=== PATIENT | female | born 1960 | race Asian ===

== ENCOUNTER 2018-05-17 09:36 | Emergency (ER) | payer MEDICAID ==
[~2018-05-17] VITALS: Ht 149.9 cm; Wt 61.8 kg
[2018-05-17] MEDS ORDERED: ALBU8HFA (09:39)
[2018-05-17] MEDS ORDERED: LEVO125 PO (09:40)
[2018-05-17] MEDS ORDERED: LORA-192 PO (09:40)
[2018-05-17] MEDS ORDERED: ACETAMINOPHEN 325 MG TABLET PO ONE (10:15)
[2018-05-17] MEDS ORDERED: PERTUSS(ACELL),DIPH,TET VAC/PF 0.5 ML VIAL IM ONE (10:30)
[2018-05-17 11:24] VITALS: BP 131/84
== END 2018-05-17 11:48 | disposition home or self-care (01) ==
LOC: EMS 09:55
DX: S92.354A Nondisplaced fracture of fifth metatarsal bone, right foot, initial encounter for closed fracture (principal); J45.909 Unspecified asthma, uncomplicated; F41.9 Anxiety disorder, unspecified; E03.9 Hypothyroidism, unspecified; Z90.49 Acquired absence of other specified parts of digestive tract; Z91.040 Latex allergy status; W18.30XA Fall on same level, unspecified, initial encounter; Y93.01 Activity, walking, marching and hiking; Y92.89 Other specified places as the place of occurrence of the external cause; Y99.8 Other external cause status
CPT/HCPCS: 29515; 90715; 99284

== ENCOUNTER → 2018-06-18 | Outpatient (CLI) | payer OTHER ==
[~2018-06-18] MED LIST: ALBU8HFA; LEVO125 PO; LORA-192 PO
[2018-06-19 13:17] LABS: RUBEOLA (MEASLES) IGG >300.0 AU/mL (Immune >29.9)
== END | disposition home or self-care (01) ==
LOC: EMPHLTH 12:36
PROVIDERS: ATTEND Internal Medicine
DX: Z02.1 Encounter for pre-employment examination (principal)
CPT/HCPCS: 86706; 86735; 86762; 86765; 86787

== ENCOUNTER → 2019-03-09 | Outpatient (CLI) | payer OTHER ==
[2019-03-09 11:29] LABS: BASOPHILS % (AUTO) 0.9 % (0.0-2.0); EOSINOPHILS % (AUTO) 4.2 % (1.0-6.0); HEMATOCRIT 39.3 % (36-46); LYMPHOCYTES % (AUTO) 35.1 % (22.0-44.0); MEAN CORPUSCULAR HEMOGLOBIN 30.8 pg (26.0-34.0); MEAN CORPUSCULAR HGB CONC 33.2 G/dL (31.0-37.0); MEAN CORPUSCULAR VOLUME 93 fL (80-100); MONOCYTES # (AUTO) 0.3 K/uL (0.1-1.0); MONOCYTES % (AUTO) 6.1 % (2.0-9.0); NEUTROPHILS # (AUTO) 3.1 K/uL (1.8-7.7); NEUTROPHILS % (AUTO) 53.7 % (40.0-70.0); PLATELET COUNT (AUTO) 314 K/uL (150-450); RED BLOOD CELL COUNT(AUTO) 4.24 MIL/uL (4.00-5.20); RED CELL DISTRIBUTION WIDTH 13.2 % (11.5-14.5)
[2019-03-09 11:46] LABS: FOLATE SERUM 12.8 ng/mL (5.4-)
[2019-03-09 12:37] LABS: ALANINE AMINOTRANSFERASE 27 U/L (12-78); ALKALINE PHOSPHATASE 92 U/L (46-116); ANION GAP 13 mmol/L (8-16); ASPARTATE AMINOTRANSFERASE 29 U/L (15-37); BILIRUBIN,TOTAL 0.4 mg/dL (0.1-1.0); C-REACTIVE PROTEIN QUANT 0.22 mg/dL (0.00-0.30); CALCIUM, TOTAL 8.8 mg/dL (8.8-10.5); CARBON DIOXIDE 23 mmol/L (22-29); CHLORIDE 106 mmol/L (98-107); CHOL/HDL RATIO 4.8 (3.9-5.7); CHOLESTEROL 205 mg/dL (131-200); CREATININE 0.73 mg/dL (0.60-1.30); FREE T4 (FREE THYROXINE) 1.41 ng/dL (0.76-1.46); GLOMERULAR FILTR. RATE CALC > 60 mL/min (>60); GLUCOSE,RANDOM 98 mg/dL (70-110); HDL CHOLESTEROL 43 mg/dL (40-60); LDL CHOL (CALC.) 144 mg/dL (0-130); POTASSIUM 4.1 mmol/L (3.5-5.1); SODIUM SERUM 142 mmol/L (136-145); THYROID STIMULATING HORMONE 0.35 uIU/mL (0.36-3.74); TOTAL PROTEIN, SERUM 7.6 g/dL (6.4-8.2); TRIGLYCERIDES 89 mg/dL (15-150); UREA NITROGEN, BLOOD 12 mg/dL (7-18)
[2019-03-09 12:38] LABS: ERYTHROCYTE SEDIMENTATION RATE 11 MM/HR (0-20)
== END | disposition home or self-care (01) ==
LOC: LABPV 07:43
PROVIDERS: ATTEND Family Medicine
DX: Z00.00 Encounter for general adult medical examination without abnormal findings (principal)
CPT/HCPCS: 82306; 82607; 82746; 83036; 84439; 84443; 85651; 86140; 86430

== ENCOUNTER 2019-09-01 07:54 | Emergency (ER) | payer OTHER ==
[~2019-09-01] VITALS: Ht 152.4 cm; Wt 67.1 kg
[2019-09-01] MEDS ORDERED: ALBU8.5H8 IH (08:18)
[2019-09-01] MEDS: AMPICILLIN SODIUM/SULBACTAM NA 3 GM in SODIUM CHLORIDE 0.9% 100 ML IV ONE (10:01)
[2019-09-01] MEDS: KETOROLAC TROMETHAMINE 30 MG/ML VIAL IVP ONE (10:01)
[2019-09-01 10:10] VITALS: BP 155/88
== END 2019-09-01 10:50 | disposition home or self-care (01) ==
LOC: EMS 07:56
DX: K04.7 Periapical abscess without sinus (principal); K08.89 Other specified disorders of teeth and supporting structures; J45.909 Unspecified asthma, uncomplicated; F41.9 Anxiety disorder, unspecified; E03.9 Hypothyroidism, unspecified; Z90.89 Acquired absence of other organs; Z91.040 Latex allergy status
CPT/HCPCS: 96365; 96375; 99283; J0295; J1885; J7050

== ENCOUNTER 2019-11-11 18:49 | Emergency (ER) | payer OTHER ==
[~2019-11-11] VITALS: Ht 149.9 cm; Wt 61.4 kg
[~2019-11-11 18:49] MED LIST changes: +ALBU8.5H8 IH
[2019-11-11 19:06] VITALS: BP 152/91
[2019-11-11] MEDS ORDERED: AMPI500C68 PO (19:17)
== END 2019-11-11 20:46 | disposition home or self-care (01) ==
LOC: EMS 18:51
DX: R13.10 Dysphagia, unspecified (principal); J06.9 Acute upper respiratory infection, unspecified; E03.9 Hypothyroidism, unspecified; F41.9 Anxiety disorder, unspecified; J45.909 Unspecified asthma, uncomplicated; Z91.040 Latex allergy status; Z79.899 Other long term (current) drug therapy

== ENCOUNTER → 2019-11-22 | Outpatient (CLI) | payer OTHER ==
[~2019-11-22] MED LIST changes: +AMPI500C68 PO
[2019-11-22 08:43] LABS: BASOPHILS % (AUTO) 0.5 % (0.0-2.0); EOSINOPHILS % (AUTO) 2.8 % (1.0-6.0); HEMATOCRIT 39.3 % (36-46); LYMPHOCYTES # (AUTO) 2.4 K/uL (1.0-4.8); LYMPHOCYTES % (AUTO) 40.7 % (22.0-44.0); MEAN CORPUSCULAR HEMOGLOBIN 30.8 pg (26.0-34.0); MEAN CORPUSCULAR HGB CONC 33.2 G/dL (31.0-37.0); MEAN CORPUSCULAR VOLUME 93 fL (80-100); MONOCYTES # (AUTO) 0.4 K/uL (0.1-1.0); MONOCYTES % (AUTO) 6.6 % (2.0-9.0); NEUTROPHILS # (AUTO) 2.9 K/uL (1.8-7.7); NEUTROPHILS % (AUTO) 49.4 % (40.0-70.0); PLATELET COUNT (AUTO) 305 K/uL (150-450); RED BLOOD CELL COUNT(AUTO) 4.24 MIL/uL (4.00-5.20); RED CELL DISTRIBUTION WIDTH 12.4 % (11.5-14.5)
[2019-11-22 08:57] LABS: HEMOGLOBIN A1C 5.9 % (3.8-5.6)
[2019-11-22 09:04] LABS: ALANINE AMINOTRANSFERASE 33 U/L (12-78); ALBUMIN 4.1 g/dL (3.4-5.0); ALKALINE PHOSPHATASE 90 U/L (46-116); ANION GAP 13 mmol/L (8-16); ASPARTATE AMINOTRANSFERASE 23 U/L (15-37); BILIRUBIN,TOTAL 0.5 mg/dL (0.1-1.0); CALCIUM, TOTAL 9.5 mg/dL (8.8-10.5); CARBON DIOXIDE 24 mmol/L (22-29); CHLORIDE 105 mmol/L (98-107); CHOL/HDL RATIO 4.7 (3.9-5.7); CHOLESTEROL 200 mg/dL (131-200); CREATININE 0.77 mg/dL (0.60-1.30); FREE T4 (FREE THYROXINE) 1.33 ng/dL (0.76-1.46); GLOMERULAR FILTR. RATE CALC > 60 mL/min (>60); GLUCOSE,RANDOM 101 mg/dL (70-110); HDL CHOLESTEROL 43 mg/dL (40-60); LDL CHOL (CALC.) 139 mg/dL (0-130); POTASSIUM 3.9 mmol/L (3.5-5.1); SODIUM SERUM 142 mmol/L (136-145); THYROID STIMULATING HORMONE 0.19 uIU/mL (0.36-3.74); TOTAL PROTEIN, SERUM 7.7 g/dL (6.4-8.2); TRIGLYCERIDES 91 mg/dL (15-150); UREA NITROGEN, BLOOD 9 mg/dL (7-18); VITAMIN B12 LEVEL 705 pg/mL (211-911); VITAMIN D,TOTAL (25-0H) 20 ng/mL (30-100)
[2019-11-22 09:44] LABS: ERYTHROCYTE SEDIMENTATION RATE 19 MM/HR (0-20)
[2019-11-23 06:16] LABS: H. PYLORI ANTIBODY IGG 4.79 (0.00-0.79)
[2019-11-24 13:06] LABS: H. PYLORI ANTIBODY IGM <9.0 units (0.0-8.9)
[2019-11-24 14:06] LABS: H. PYLORI ANTIBODY IGA 13.9 units (0.0-8.9)
== END | disposition home or self-care (01) ==
LOC: LABPV 07:21
PROVIDERS: ATTEND Family Medicine
DX: Z00.00 Encounter for general adult medical examination without abnormal findings (principal)
CPT/HCPCS: 82306; 82607; 83036; 83970; 84439; 84443; 85651; 86430; 86677

== ENCOUNTER 2019-11-29 11:55 | Emergency (ER) | payer OTHER ==
[~2019-11-29] VITALS: Ht 149.9 cm; Wt 60.5 kg
[2019-11-29 13:48] LABS: BASOPHILS % (AUTO) 0.7 % (0.0-2.0); EOSINOPHILS % (AUTO) 3.5 % (1.0-6.0); HEMATOCRIT 38.7 % (36-46); LYMPHOCYTES # (AUTO) 2.4 K/uL (1.0-4.8); LYMPHOCYTES % (AUTO) 35.5 % (22.0-44.0); MEAN CORPUSCULAR HGB CONC 33.6 G/dL (31.0-37.0); MEAN CORPUSCULAR VOLUME 92 fL (80-100); MONOCYTES # (AUTO) 0.4 K/uL (0.1-1.0); MONOCYTES % (AUTO) 5.2 % (2.0-9.0); NEUTROPHILS # (AUTO) 3.8 K/uL (1.8-7.7); NEUTROPHILS % (AUTO) 55.1 % (40.0-70.0); PLATELET COUNT (AUTO) 274 K/uL (150-450); RED CELL DISTRIBUTION WIDTH 12.6 % (11.5-14.5)
[2019-11-29 14:02] LABS: ANION GAP 10 mmol/L (8-16); CALCIUM, TOTAL 9.4 mg/dL (8.8-10.5); CARBON DIOXIDE 25 mmol/L (22-29); CHLORIDE 104 mmol/L (98-107); CREATININE 0.63 mg/dL (0.60-1.30); GLOMERULAR FILTR. RATE CALC > 60 mL/min (>60); GLUCOSE,RANDOM 80 mg/dL (70-110); POTASSIUM 3.6 mmol/L (3.5-5.1); SODIUM SERUM 139 mmol/L (136-145); UREA NITROGEN, BLOOD 9 mg/dL (7-18)
[2019-11-29 14:08] LABS: ALANINE AMINOTRANSFERASE 31 U/L (12-78); ALBUMIN 4.1 g/dL (3.4-5.0); ALKALINE PHOSPHATASE 92 U/L (46-116); ASPARTATE AMINOTRANSFERASE 21 U/L (15-37); BILIRUBIN,TOTAL 0.4 mg/dL (0.1-1.0); INR 1.1 (0.9-1.1); PROTHROMBIN TIME 10.8 SEC (9.4-11.6); TOTAL PROTEIN, SERUM 7.5 g/dL (6.4-8.2)
[2019-11-29 15:52] VITALS: BP 136/81
== END 2019-11-29 16:16 | disposition home or self-care (01) ==
LOC: EMS 11:57
DX: K22.5 Diverticulum of esophagus, acquired (principal); F41.9 Anxiety disorder, unspecified; J45.909 Unspecified asthma, uncomplicated; E03.9 Hypothyroidism, unspecified; Z90.89 Acquired absence of other organs; Z90.710 Acquired absence of both cervix and uterus; Z91.040 Latex allergy status; Z91.018 Allergy to other foods
CPT/HCPCS: 74220

== ENCOUNTER → 2020-03-02 | Outpatient (CLI) | payer OTHER ==
[~2020-03-02] MED LIST changes: -ALBU8HFA; -AMPI500C68 PO
[2020-03-02 09:15] LABS: EOSINOPHILS % (AUTO) 3.8 % (1.0-6.0); HEMOGLOBIN 13.4 g/dL (12.0-16.0); LYMPHOCYTES % (AUTO) 36.4 % (22.0-44.0); MEAN CORPUSCULAR HEMOGLOBIN 31.4 pg (26.0-34.0); MEAN CORPUSCULAR HGB CONC 33.5 G/dL (31.0-37.0); MEAN CORPUSCULAR VOLUME 94 fL (80-100); MONOCYTES # (AUTO) 0.3 K/uL (0.1-1.0); MONOCYTES % (AUTO) 6.2 % (2.0-9.0); NEUTROPHILS # (AUTO) 2.9 K/uL (1.8-7.7); NEUTROPHILS % (AUTO) 52.6 % (40.0-70.0); PLATELET COUNT (AUTO) 293 K/uL (150-450); RED BLOOD CELL COUNT(AUTO) 4.27 MIL/uL (4.00-5.20); RED CELL DISTRIBUTION WIDTH 13.7 % (11.5-14.5)
[2020-03-02 09:29] LABS: HEMOGLOBIN A1C 5.7 % (3.8-5.6)
[2020-03-02 09:30] LABS: % IRON SATURATION 26.1 % (22-44); IRON, SERUM 100 mcg/dL (50-175); TOTAL IRON BINDING CAPACITY 383 mcg/dL (250-450)
[2020-03-02 09:45] LABS: ALANINE AMINOTRANSFERASE 24 U/L (12-78); ALBUMIN 4.4 g/dL (3.4-5.0); ALKALINE PHOSPHATASE 95 U/L (46-116); ANION GAP 12 mmol/L (8-16); ASPARTATE AMINOTRANSFERASE 16 U/L (15-37); BILIRUBIN,TOTAL 0.4 mg/dL (0.1-1.0); CALCIUM, TOTAL 9.3 mg/dL (8.8-10.5); CARBON DIOXIDE 26 mmol/L (22-29); CHLORIDE 106 mmol/L (98-107); CHOL/HDL RATIO 2.9 (3.9-5.7); CHOLESTEROL 245 mg/dL (131-200); CREATINE KINASE, TOTAL ONLY 49 U/L (26-192); CREATININE 0.85 mg/dL (0.60-1.30); FREE T4 (FREE THYROXINE) 0.99 ng/dL (0.76-1.46); GLOMERULAR FILTR. RATE CALC > 60 mL/min (>60); GLUCOSE,RANDOM 93 mg/dL (70-110); HDL CHOLESTEROL 85 mg/dL (40-60); LDL CHOL (CALC.) 146 mg/dL (0-130); POTASSIUM 4.4 mmol/L (3.5-5.1); SODIUM SERUM 144 mmol/L (136-145); TOTAL PROTEIN, SERUM 8.1 g/dL (6.4-8.2); TRIGLYCERIDES 70 mg/dL (15-150); UREA NITROGEN, BLOOD 18 mg/dL (7-18)
[2020-03-02 10:35] LABS: ERYTHROCYTE SEDIMENTATION RATE 20 MM/HR (0-20)
[2020-03-02 10:48] LABS: APPEARANCE,URINE CLOUDY (CLEAR); BILIRUBIN,URINE NEGATIVE (NEGATIVE); GLUCOSE, URINE (UA) NEGATIVE (NEGATIVE); KETONES,URINE NEGATIVE (NEGATIVE); LEUKOCYTE ESTERASE ,URINE MODERATE (NEGATIVE); NITRATE,URINE NEGATIVE (NEGATIVE); OCCULT BLOOD,URINE NEGATIVE (NEGATIVE); PH,URINE 5.5 (5.0-8.0); PROTEIN,URINE NEGATIVE (NEGATIVE); UROBILINOGEN,URINE 0.2 mg/dL (<=1.0)
[2020-03-02 11:22] LABS: FOLATE SERUM 9.2 ng/mL (5.4-)
[2020-03-02 11:28] LABS: BACTERIA,URINE None Seen /HPF (None Seen); RBC,URINE None Seen /HPF (0-2); SQUAMOUS EPITHELIAL CELL,UR Moderate /LPF (None Seen)
== END | disposition home or self-care (01) ==
LOC: LABMN 08:38
PROVIDERS: ATTEND Family Medicine
DX: Z00.01 Encounter for general adult medical examination with abnormal findings (principal); E03.9 Hypothyroidism, unspecified
CPT/HCPCS: 82306; 82607; 82746; 83036; 83540; 83550; 84439; 84443; 85651; 86430

== ENCOUNTER 2020-06-18 13:39 | Emergency (ER) | payer OTHER ==
[~2020-06-18] VITALS: Ht 160 cm; Wt 59.0 kg
[2020-06-18] MEDS ORDERED: ALBUTEROL SULFATE 2.5 MG/0.5 ML NEB SOLUTION NEB ONE (13:45)
[2020-06-18] MEDS ORDERED: IPRATROPIUM BROMIDE 0.5 MG/2.5 ML NEB SOLUTION NEB ONE (13:45)
[2020-06-18 14:09] VITALS: BP 137/82
[2020-06-18] MEDS ORDERED: PredniSONE 20 MG TABLET PO ONE (14:15)
[2020-06-18 15:01] LABS: COVID AG,FIA SOURCE NASOPHARYNGEAL
[2020-06-18] MEDS ORDERED: ALBUTEROL SULFATE HFA 90 MCG/PUFF 8 GM INHALER IH ONE (16:15)
== END 2020-06-18 16:34 | disposition home or self-care (01) ==
LOC: EMS 13:42
DX: J45.909 Unspecified asthma, uncomplicated (principal); F41.9 Anxiety disorder, unspecified; Z90.89 Acquired absence of other organs; Z90.710 Acquired absence of both cervix and uterus; Z91.040 Latex allergy status; Z91.018 Allergy to other foods
CPT/HCPCS: 71045; 87426; 94640; 99284; J7512; 94060; J3535; J7613

== ENCOUNTER 2020-07-19 09:22 | Emergency (ER) | payer OTHER ==
[~2020-07-19] VITALS: Ht 149.9 cm; Wt 61.4 kg
[2020-07-19 10:06] LABS: BASOPHILS % (AUTO) 0.9 % (0.0-2.0); HEMATOCRIT 38.4 % (36-46); LYMPHOCYTES # (AUTO) 2.4 K/uL (1.0-4.8); LYMPHOCYTES % (AUTO) 38.8 % (22.0-44.0); MEAN CORPUSCULAR HEMOGLOBIN 32.3 pg (26.0-34.0); MEAN CORPUSCULAR HGB CONC 33.8 G/dL (31.0-37.0); MEAN CORPUSCULAR VOLUME 95 fL (80-100); MONOCYTES # (AUTO) 0.3 K/uL (0.1-1.0); MONOCYTES % (AUTO) 5.5 % (2.0-9.0); NEUTROPHILS # (AUTO) 3.2 K/uL (1.8-7.7); NEUTROPHILS % (AUTO) 50.8 % (40.0-70.0); PLATELET COUNT (AUTO) 316 K/uL (150-450); RED BLOOD CELL COUNT(AUTO) 4.03 MIL/uL (4.00-5.20); RED CELL DISTRIBUTION WIDTH 12.8 % (11.5-14.5)
[2020-07-19 10:14] LABS: COVID AG,FIA SOURCE NASOPHARYNGEAL
[2020-07-19 10:16] LABS: ANION GAP 14 mmol/L (8-16); CALCIUM, TOTAL 9.4 mg/dL (8.8-10.5); CARBON DIOXIDE 23 mmol/L (22-29); CHLORIDE 103 mmol/L (98-107); CREATININE 0.82 mg/dL (0.60-1.30); GLOMERULAR FILTR. RATE CALC > 60 mL/min (>60); GLUCOSE,RANDOM 107 mg/dL (70-110); POTASSIUM 4.1 mmol/L (3.5-5.1); SODIUM SERUM 140 mmol/L (136-145); UREA NITROGEN, BLOOD 13 mg/dL (7-18)
[2020-07-19 10:21] LABS: ALANINE AMINOTRANSFERASE 20 U/L (12-78); ALBUMIN 4.1 g/dL (3.4-5.0); ALKALINE PHOSPHATASE 79 U/L (46-116); ASPARTATE AMINOTRANSFERASE 15 U/L (15-37); BILIRUBIN,TOTAL 0.3 mg/dL (0.1-1.0); TOTAL PROTEIN, SERUM 7.1 g/dL (6.4-8.2)
[2020-07-19] MEDS ORDERED: MECLIZINE HCL 25 MG TABLET PO ONE (10:45)
[2020-07-19] MEDS ORDERED: ONDANSETRON HCL 4 MG TABLET PO ONE (10:45)
[2020-07-19 12:19] LABS: APPEARANCE,URINE CLEAR (CLEAR); BILIRUBIN,URINE NEGATIVE (NEGATIVE); GLUCOSE, URINE (UA) NEGATIVE (NEGATIVE); KETONES,URINE NEGATIVE (NEGATIVE); LEUKOCYTE ESTERASE ,URINE NEGATIVE (NEGATIVE); NITRATE,URINE NEGATIVE (NEGATIVE); OCCULT BLOOD,URINE TRACE (NEGATIVE); PH,URINE 6.5 (5.0-8.0); PROTEIN,URINE NEGATIVE (NEGATIVE); UROBILINOGEN,URINE 0.2 mg/dL (<=1.0)
[2020-07-19 12:24] LABS: BACTERIA,URINE None Seen /HPF (None Seen); RBC,URINE 0-2 /HPF (0-2); SQUAMOUS EPITHELIAL CELL,UR Moderate /LPF (None Seen); WBC,URINE None Seen /HPF (0-5)
[2020-07-19] MEDS ORDERED: ALBUTEROL SULFATE HFA 90 MCG/PUFF 8 GM INHALER IH ONE (12:45)
[2020-07-19 13:40] VITALS: BP 142/98
[2020-07-19] MEDS ORDERED: FLUTICASONE/SALMETEROL 250-50 MCG/INH INHALER [60] IH ONE (14:30)
== END 2020-07-19 13:55 | disposition home or self-care (01) ==
LOC: EMS 09:23
DX: R42 Dizziness and giddiness (principal); F41.9 Anxiety disorder, unspecified; J45.909 Unspecified asthma, uncomplicated; E03.9 Hypothyroidism, unspecified; Z90.49 Acquired absence of other specified parts of digestive tract; Z90.710 Acquired absence of both cervix and uterus; Z91.018 Allergy to other foods; Z91.040 Latex allergy status; Z88.5 Allergy status to narcotic agent; Z79.899 Other long term (current) drug therapy; Z20.828 Contact with and (suspected) exposure to other viral communicable diseases
CPT/HCPCS: 87426; 93005; 94640; J3535; Q0162; 36415-L1; 36415-TC; 71045-TC; U0003-CS

== ENCOUNTER 2020-09-19 17:25 | Emergency (ER) | payer OTHER ==
[~2020-09-19] VITALS: Ht 160 cm; Wt 65.9 kg
[2020-09-19] MEDS ORDERED: DiphenhydrAMINE HCL 50 MG/ML VIAL IM ONE (17:45)
[2020-09-19] MEDS ORDERED: FAMOTIDINE 20 MG TABLET PO ONE (17:45)
[2020-09-19 18:51] VITALS: BP 148/90
== END 2020-09-19 18:54 | disposition home or self-care (01) ==
LOC: EMS 17:25
DX: T88.1XXA Other complications following immunization, not elsewhere classified, initial encounter (principal); F41.9 Anxiety disorder, unspecified; J45.909 Unspecified asthma, uncomplicated; Z90.89 Acquired absence of other organs; Z90.710 Acquired absence of both cervix and uterus; Z91.040 Latex allergy status; Z88.5 Allergy status to narcotic agent; Z91.018 Allergy to other foods
CPT/HCPCS: 96372; 99283; J1200

== ENCOUNTER 2021-09-10 13:33 | Emergency (ER) | payer OTHER ==
[~2021-09-10] VITALS: Ht 149.9 cm; Wt 62.3 kg
[2021-09-10] MEDS ORDERED: FAMOTIDINE 20 MG TABLET PO STA (13:54)
[2021-09-10] MEDS ORDERED: IPRATROPIUM BROMIDE 0.5 MG/2.5 ML NEB SOLUTION NEB ONE (14:00)
[2021-09-10] MEDS ORDERED: MethylPREDNISolone SOD SUCC 125 MG/2 ML VIAL IVP ONE (14:00)
[2021-09-10] MEDS ORDERED: DiphenhydrAMINE HCL 25 MG CAPSULE PO ONE (14:00)
[2021-09-10] MEDS ORDERED: ALBUTEROL SULFATE 5 MG/ML 20 ML NEB SOLN [BULK] NEB ONE (14:00)
[2021-09-10] MEDS ORDERED: FAMOTIDINE 10 MG/ML 2 ML VIAL IVP ONE (14:15)
[2021-09-10] MEDS ORDERED: DiphenhydrAMINE HCL 50 MG/ML VIAL IVP ONE (14:15)
[2021-09-10 14:51] VITALS: BP 145/93
== END 2021-09-10 16:06 | disposition home or self-care (01) ==
LOC: EMS 13:37
DX: T88.1XXA Other complications following immunization, not elsewhere classified, initial encounter (principal); J45.909 Unspecified asthma, uncomplicated; F41.9 Anxiety disorder, unspecified; Z90.710 Acquired absence of both cervix and uterus; Z91.040 Latex allergy status; Z88.5 Allergy status to narcotic agent; Z91.018 Allergy to other foods; Y92.89 Other specified places as the place of occurrence of the external cause
CPT/HCPCS: 94640; 96374; 96375; 99284; J1200; J2930; J3490

== ENCOUNTER 2021-12-27 10:26 | Emergency (ER) | payer OTHER ==
[~2021-12-27] VITALS: Ht 149.9 cm; Wt 62.3 kg
[2021-12-27] MEDS ORDERED: FLUT1BLS8 IH (10:39)
[2021-12-27 11:01] VITALS: BP 154/93
[2021-12-27] MEDS ORDERED: ALBUTEROL SULFATE 2.5 MG/0.5 ML NEB SOLUTION NEB ONE (11:30)
[2021-12-27] MEDS ORDERED: IPRATROPIUM BROMIDE 0.5 MG/2.5 ML NEB SOLUTION NEB ONE (11:30)
[2021-12-27] MEDS ORDERED: MethylPREDNISolone SOD SUCC 125 MG/2 ML VIAL IM ONE (11:30)
[2021-12-27] MEDS ORDERED: PRED-554 PO (13:05)
[2021-12-27] MEDS ORDERED: FLUT1BLS9 IH (13:05)
== END 2021-12-27 13:19 | disposition home or self-care (01) ==
LOC: EMS 10:29
DX: J45.901 Unspecified asthma with (acute) exacerbation (principal); F41.9 Anxiety disorder, unspecified; E03.9 Hypothyroidism, unspecified; Z88.5 Allergy status to narcotic agent; Z91.040 Latex allergy status; Z91.018 Allergy to other foods; Z79.899 Other long term (current) drug therapy
CPT/HCPCS: 71045; 94640; 96372; 99283; J2930; J7613

== ENCOUNTER 2023-01-19 10:49 | Emergency (ER) | payer OTHER ==
[~2023-01-19] VITALS: Ht 149.9 cm; Wt 63.6 kg
[~2023-01-19 10:49] MED LIST changes: +FLUT1BLS8 IH; +FLUT1BLS9 IH; +PRED-554 PO
[2023-01-19] MEDS ORDERED: FLUT1BLS8 IH (10:51)
[2023-01-19] MEDS ORDERED: IBUP-1492 PO (12:40)
[2023-01-19] MEDS ORDERED: PERCT PO (12:40)
[2023-01-19] MEDS ORDERED: KETOROLAC TROMETHAMINE 60 MG/2 ML VIAL IM ONE (12:45)
[2023-01-19] MEDS ORDERED: ALBU18HF12 IH (12:48)
[2023-01-19 13:17] VITALS: BP 121/72
[2023-01-19] MEDS ORDERED: TRAM-559 PO (13:19)
== END 2023-01-19 13:20 | disposition home or self-care (01) ==
LOC: EMS 10:56
DX: S20.229A Contusion of unspecified back wall of thorax, initial encounter (principal); F41.9 Anxiety disorder, unspecified; J45.909 Unspecified asthma, uncomplicated; E03.9 Hypothyroidism, unspecified; Z90.49 Acquired absence of other specified parts of digestive tract; Z90.710 Acquired absence of both cervix and uterus; Z91.040 Latex allergy status; Z91.013 Allergy to seafood; Z88.5 Allergy status to narcotic agent; Z91.018 Allergy to other foods; W17.89XA Other fall from one level to another, initial encounter; Y93.89 Activity, other specified; Y92.89 Other specified places as the place of occurrence of the external cause; Y99.8 Other external cause status
CPT/HCPCS: 99283; 96372; J1885

== ENCOUNTER 2023-03-16 12:05 | Emergency (ER) | payer OTHER ==
[~2023-03-16] VITALS: Ht 149.9 cm; Wt 63.6 kg
[~2023-03-16 12:05] MED LIST changes: +ALBU18HF12 IH; -ALBU8.5H8 IH; -FLUT1BLS9 IH; +IBUP-1492 PO; +PERCT PO; -PRED-554 PO; +TRAM-559 PO
[2023-03-16 12:10] VITALS: TEMP 98.4
[2023-03-16] MEDS ORDERED: IBUPROFEN 600 MG TABLET PO ONE (12:45)
[2023-03-16] MEDS ORDERED: CYCLOBENZAPRINE HCL 10 MG TABLET PO ONE (12:45)
[2023-03-16] MEDS ORDERED: CYCL-448 PO (13:34)
[2023-03-16 13:39] VITALS: BP 120/89; PULSE 97; RESP 16
== END 2023-03-16 13:41 | disposition home or self-care (01) ==
LOC: EMS 12:14
DX: S86.912A Strain of unspecified muscle(s) and tendon(s) at lower leg level, left leg, initial encounter (principal); J45.909 Unspecified asthma, uncomplicated; F41.9 Anxiety disorder, unspecified; E03.9 Hypothyroidism, unspecified; Z90.49 Acquired absence of other specified parts of digestive tract; Z90.710 Acquired absence of both cervix and uterus; Z88.5 Allergy status to narcotic agent; Z88.8 Allergy status to other drugs, medicaments and biological substances; Z91.013 Allergy to seafood; Z91.040 Latex allergy status; Z03.89 Encounter for observation for other suspected diseases and conditions ruled out; X58.XXXA Exposure to other specified factors, initial encounter; Y93.89 Activity, other specified; Y92.89 Other specified places as the place of occurrence of the external cause; Y99.8 Other external cause status
CPT/HCPCS: 93971; 99284; Z7502; Z7610

== ENCOUNTER 2023-11-10 12:27 | Emergency (ER) | payer OTHER ==
[~2023-11-10] VITALS: Ht 149.9 cm; Wt 63.6 kg
[~2023-11-10 12:27] MED LIST changes: +CYCL-448 PO; +FLUT1BLS18 IH; -FLUT1BLS8 IH; -IBUP-1492 PO; -PERCT PO; -TRAM-559 PO
[2023-11-10 12:33] VITALS: TEMP 98.4
[2023-11-10 12:53] VITALS: PULSE 82; RESP 20; O2SAT 96
[2023-11-10 12:54] VITALS: PULSE 82; RESP 20; O2SAT 96
[2023-11-10] MEDS: IPRATROPIUM BROMIDE 0.5 MG/2.5 ML NEB SOLUTION NEB ONE (12:55)
[2023-11-10] MEDS: ALBUTEROL SULFATE 2.5 MG/0.5 ML NEB SOLUTION NEB ONE (12:55)
[2023-11-10] MEDS: ALBUTEROL SULFATE HFA 90 MCG/PUFF 8 GM INHALER IH ONE (12:55)
[2023-11-10 13:00] VITALS: PULSE 82; RESP 20; O2SAT 100
[2023-11-10] MEDS: PredniSONE 20 MG TABLET PO ONE (13:01)
[2023-11-10 13:02] LABS: COVID AG,FIA SOURCE NASAL SWAB
[2023-11-10 13:36] LABS: SARS-COV2 (COVID) ANTIGEN,FIA Negative (Negative)
[2023-11-10 13:38] LABS: INFLUENZA TYPE A NEGATIVE FOR TYPE A (NEGATIVE); INFLUENZA TYPE B NEGATIVE FOR TYPE B (NEGATIVE)
[2023-11-10 13:45] VITALS: BP 145/93; PULSE 80; RESP 18
[2023-11-10] MEDS: ACETAMINOPHEN 160 MG/5 ML SUSPENSION UDCUP PO ONE (13:47)
== END 2023-11-10 13:54 | disposition home or self-care (01) ==
LOC: EMS 12:46
DX: J45.901 Unspecified asthma with (acute) exacerbation (principal); F41.9 Anxiety disorder, unspecified; Z90.49 Acquired absence of other specified parts of digestive tract; Z90.710 Acquired absence of both cervix and uterus; Z88.5 Allergy status to narcotic agent; Z91.040 Latex allergy status; Z91.013 Allergy to seafood; Z20.822 Contact with and (suspected) exposure to COVID-19
CPT/HCPCS: 99283; 87426; 87804; 94640; J7512; J3535

== ENCOUNTER 2023-11-20 11:21 | Emergency (ER) | payer OTHER ==
[~2023-11-20] VITALS: Ht 149.9 cm; Wt 63.6 kg
[2023-11-20 11:32] VITALS: BP 119/79; TEMP 97.9
[2023-11-20] MEDS: PredniSONE 20 MG TABLET PO ONE (11:45)
[2023-11-20] MEDS: ALBUTEROL SULFATE 2.5 MG/0.5 ML NEB SOLUTION NEB ONE (11:50)
[2023-11-20] MEDS: IPRATROPIUM BROMIDE 0.5 MG/2.5 ML NEB SOLUTION NEB ONE (11:50)
[2023-11-20 11:51] VITALS: PULSE 89; RESP 16; O2SAT 98
[2023-11-20 12:06] VITALS: PULSE 87; RESP 16; O2SAT 98
[2023-11-20] MEDS ORDERED: PRED-554 PO (13:40)
== END 2023-11-20 13:48 | disposition home or self-care (01) ==
LOC: EMS 11:21
DX: J45.901 Unspecified asthma with (acute) exacerbation (principal); F41.9 Anxiety disorder, unspecified; E03.9 Hypothyroidism, unspecified; Z90.49 Acquired absence of other specified parts of digestive tract; Z90.710 Acquired absence of both cervix and uterus; Z88.5 Allergy status to narcotic agent; Z88.8 Allergy status to other drugs, medicaments and biological substances; Z91.040 Latex allergy status; Z91.013 Allergy to seafood
CPT/HCPCS: 99283; 71045; 94640; J7512; J7613

== ENCOUNTER → 2024-01-18 | Outpatient (CLI) | payer OTHER ==
[~2024-01-18] MED LIST changes: +PRED-554 PO
[2024-01-18 10:44] LABS: BASOPHILS % (AUTO) 0.9 % (0.0-2.0); EOSINOPHILS % (AUTO) 1.1 % (1.0-6.0); HEMATOCRIT 42.1 % (36-46); HEMOGLOBIN 13.9 g/dL (12.0-16.0); LYMPHOCYTES # (AUTO) 4.6 K/uL (1.0-4.8); LYMPHOCYTES % (AUTO) 37.4 % (22.0-44.0); MEAN CORPUSCULAR HGB CONC 33.1 G/dL (31.0-37.0); MEAN CORPUSCULAR VOLUME 93 fL (80-100); MONOCYTES # (AUTO) 0.8 K/uL (0.1-1.0); MONOCYTES % (AUTO) 6.3 % (2.0-9.0); NEUTROPHILS # (AUTO) 6.6 K/uL (1.8-7.7); NEUTROPHILS % (AUTO) 54.3 % (40.0-70.0); PLATELET COUNT (AUTO) 310 K/uL (150-450); RED BLOOD CELL COUNT(AUTO) 4.51 MIL/uL (4.00-5.20); RED CELL DISTRIBUTION WIDTH 12.9 % (11.5-14.5); WHITE BLOOD COUNT (AUTO) 12.2 K/uL (4.5-11.0)
[2024-01-18 10:51] LABS: HEMOGLOBIN A1C 5.8 % (3.8-5.6)
[2024-01-18 11:01] LABS: % IRON SATURATION 28.6 % (22-44); IRON, SERUM 109 mcg/dL (50-175); TOTAL IRON BINDING CAPACITY 380 mcg/dL (250-450)
[2024-01-18 11:09] LABS: ALANINE AMINOTRANSFERASE 23 U/L (12-78); ALBUMIN 4.1 g/dL (3.4-5.0); ALKALINE PHOSPHATASE 104 U/L (46-116); ANION GAP 11 mmol/L (8-16); ASPARTATE AMINOTRANSFERASE 14 U/L (15-37); BILIRUBIN,TOTAL 0.3 mg/dL (0.1-1.0); CALCIUM, TOTAL 8.8 mg/dL (8.8-10.5); CARBON DIOXIDE 25 mmol/L (22-29); CHLORIDE 105 mmol/L (98-107); CREATININE 0.79 mg/dL (0.60-1.30); FREE T4 (FREE THYROXINE) 0.97 ng/dL (0.76-1.46); GLOMERULAR FILTR. RATE CALC > 60 mL/min (>60); GLUCOSE,RANDOM 84 mg/dL (70-110); POTASSIUM 3.7 mmol/L (3.5-5.1); SODIUM SERUM 141 mmol/L (136-145); THYROID STIMULATING HORMONE 0.57 uIU/mL (0.36-3.74); TOTAL PROTEIN, SERUM 7.5 g/dL (6.4-8.2); UREA NITROGEN, BLOOD 20 mg/dL (7-18)
[2024-01-18 11:19] LABS: FOLATE SERUM 13.1 ng/mL (5.4-)
[2024-01-18 12:46] LABS: URIC ACID 3.9 mg/dL (2.6-7.2)
[2024-01-19 10:47] LABS: APPEARANCE,URINE CLEAR (CLEAR); BILIRUBIN,URINE NEGATIVE (NEGATIVE); COLOR,URINE LIGHT YELLOW (YELLOW); GLUCOSE, URINE (UA) NEGATIVE (NEGATIVE); KETONES,URINE NEGATIVE (NEGATIVE); LEUKOCYTE ESTERASE ,URINE NEGATIVE (NEGATIVE); NITRATE,URINE NEGATIVE (NEGATIVE); OCCULT BLOOD,URINE TRACE (NEGATIVE); PROTEIN,URINE NEGATIVE (NEGATIVE); UROBILINOGEN,URINE <=1.0 mg/dL (<=1.0)
[2024-01-19 10:55] LABS: BACTERIA,URINE None Seen /HPF (None Seen); RBC,URINE 0-2 /HPF (0-2); WBC,URINE None Seen /HPF (0-5)
== END | disposition home or self-care (01) ==
LOC: LABMN 10:11
PROVIDERS: ATTEND Family Medicine
DX: Z00.01 Encounter for general adult medical examination with abnormal findings (principal)
CPT/HCPCS: 80053; 81001; 82271; 82306; 82607; 82746; 83036; 83540; 83550; 84439; 84443; 84550; 85025; 87086; 87186

== ENCOUNTER 2024-03-02 06:23 | Inpatient (IN) | payer OTHER, MEDICARE ==
[~2024-03-02] VITALS: Ht 149.9 cm; Wt 69.0 kg
[2024-03-02] MEDS: ALBUTEROL SULFATE 2.5 MG/0.5 ML 5 ML NEB SOLUTION NEB ONE ×2 (07:01→08:41)
[2024-03-02] MEDS: IPRATROPIUM BROMIDE 0.5 MG/2.5 ML NEB SOLUTION NEB ONE ×2 (07:01→08:41)
[2024-03-02 07:03] VITALS: PULSE 120; RESP 22; O2SAT 93
[2024-03-02] MEDS: MethylPREDNISolone SOD SUCC 125 MG/2 ML VIAL IVP ONE (07:13)
[2024-03-02 07:14] LABS: COVID AG,FIA SOURCE NASAL SWAB
[2024-03-02 07:22] LABS: ANION GAP 12 mmol/L (8-16); CALCIUM, TOTAL 9.6 mg/dL (8.8-10.5); CARBON DIOXIDE 23 mmol/L (22-29); CHLORIDE 105 mmol/L (98-107); CREATININE 0.79 mg/dL (0.60-1.30); GLOMERULAR FILTR. RATE CALC > 60 mL/min (>60); GLUCOSE,RANDOM 131 mg/dL (70-110); POTASSIUM 3.8 mmol/L (3.5-5.1); SODIUM SERUM 140 mmol/L (136-145); UREA NITROGEN, BLOOD 19 mg/dL (7-18)
[2024-03-02 07:24] LABS: EOSINOPHILS % (AUTO) 6.4 % (1.0-6.0); HEMATOCRIT 41.8 % (36-46); HEMOGLOBIN 13.7 g/dL (12.0-16.0); LYMPHOCYTES # (AUTO) 2.8 K/uL (1.0-4.8); LYMPHOCYTES % (AUTO) 41.4 % (22.0-44.0); MEAN CORPUSCULAR HEMOGLOBIN 31.1 pg (26.0-34.0); MEAN CORPUSCULAR HGB CONC 32.8 G/dL (31.0-37.0); MEAN CORPUSCULAR VOLUME 95 fL (80-100); MONOCYTES # (AUTO) 0.4 K/uL (0.1-1.0); MONOCYTES % (AUTO) 6.2 % (2.0-9.0); PLATELET COUNT (AUTO) 274 K/uL (150-450); RED BLOOD CELL COUNT(AUTO) 4.42 MIL/uL (4.00-5.20); RED CELL DISTRIBUTION WIDTH 13.2 % (11.5-14.5); WHITE BLOOD COUNT (AUTO) 6.7 K/uL (4.5-11.0)
[2024-03-02 07:27] LABS: ALANINE AMINOTRANSFERASE 25 U/L (12-78); ALBUMIN 3.9 g/dL (3.4-5.0); ALKALINE PHOSPHATASE 103 U/L (46-116); ASPARTATE AMINOTRANSFERASE 17 U/L (15-37); BILIRUBIN,TOTAL 0.4 mg/dL (0.1-1.0); TOTAL PROTEIN, SERUM 7.3 g/dL (6.4-8.2)
[2024-03-02 07:28] LABS: SARS-COV2 (COVID) ANTIGEN,FIA Negative (Negative)
[2024-03-02 07:29] LABS: TROPONIN I-HIGH SENSITIVITY 6 ng/L (<51)
[2024-03-02 07:34] LABS: B-TYPE NATRIURETIC PEPTIDE 8 pg/mL (0-100)
[2024-03-02 07:48] LABS: INFLUENZA TYPE A NEGATIVE FOR TYPE A (NEGATIVE); INFLUENZA TYPE B NEGATIVE FOR TYPE B (NEGATIVE)
[2024-03-02 08:01] VITALS: PULSE 110; RESP 20; O2SAT 97
[2024-03-02] MEDS: ACETAMINOPHEN 500 MG TABLET PO ONE (08:15)
[2024-03-02 08:41] VITALS: PULSE 115; RESP 18; O2SAT 99
[2024-03-02 09:45] VITALS: PULSE 115; RESP 18; O2SAT 94
[2024-03-02] MEDS: SODIUM CHLORIDE 0.9% 1,900 ML IV ONE (11:03)
[2024-03-02] MEDS ORDERED: PRED-554 PO (13:30)
[2024-03-02] MEDS ORDERED: ALBU18HF12 IH (13:30)
[2024-03-02] MEDS ORDERED: BISACODYL 10 MG RECTAL RECTAL SUPPOSITORY PR PRN (15:30)
[2024-03-02] MEDS ORDERED: MAGNESIUM HYDROXIDE SUSPENSION 30 ML UDCUP PO PRN (15:30)
[2024-03-02] MEDS ORDERED: CYCLOBENZAPRINE HCL 10 MG TABLET PO PRN (15:30)
[2024-03-02] MEDS ORDERED: ALBUTEROL SULFATE 2.5 MG/0.5 ML NEB SOLUTION NEB PRN (15:30)
[2024-03-02] MEDS ORDERED: IPRATROPIUM BROMIDE 0.5 MG/2.5 ML NEB SOLUTION NEB PRN (15:30)
[2024-03-02] MEDS ORDERED: BENZONATATE 100 MG CAPSULE PO SCH (16:00)
[2024-03-02] MEDS: BENZONATATE 100 MG CAPSULE PO SCH (16:00)
[2024-03-02 16:12] VITALS: PULSE 112; RESP 18
[2024-03-02] MEDS ORDERED: AMOX500C2 PO (16:38)
[2024-03-02] MEDS: HEPARIN SODIUM,PORCINE 5,000 UNITS/ML VIAL SQ SCH (16:44)
[2024-03-02] MEDS: ACETAMINOPHEN 325 MG TABLET PO PRN (17:06)
[2024-03-02] MEDS: CefTRIAXone 1 GM/DEXTROSE 50 ML IV SCH (17:23)
[2024-03-02] MEDS: MethylPREDNISolone SOD SUCC 125 MG/2 ML VIAL IVP SCH (17:30)
[2024-03-02] MEDS ORDERED: MethylPREDNISolone SOD SUCC 125 MG/2 ML VIAL IVP SCH (18:00)
[2024-03-02] MEDS: AZITHROMYCIN 500 MG/NS 250 ML IV SCH (18:22)
[2024-03-02] MEDS ORDERED: IPRATROPIUM BROMIDE 0.5 MG/2.5 ML NEB SOLUTION NEB SCH (20:00)
[2024-03-02] MEDS: IPRATROPIUM BROMIDE 0.5 MG/2.5 ML NEB SOLUTION NEB SCH (20:00)
[2024-03-02] MEDS: ALBUTEROL SULFATE 2.5 MG/0.5 ML NEB SOLUTION NEB SCH (20:00)
[2024-03-02] MEDS ORDERED: ALBUTEROL SULFATE 2.5 MG/0.5 ML NEB SOLUTION NEB SCH (20:00)
[2024-03-02 20:29] VITALS: BP 142/85; PULSE 104; RESP 19; TEMP 97.8
[2024-03-02] MEDS: DOCUSATE SODIUM 100 MG CAPSULE PO SCH (21:00)
[2024-03-02] MEDS ORDERED: GuaiFENesin SR 600 MG ER TABLET PO SCH (21:00)
[2024-03-02] MEDS: GuaiFENesin SR 600 MG ER TABLET PO SCH (21:00)
[2024-03-02] MEDS: ZOLPIDEM TARTRATE 5 MG TABLET PO PRN (21:17)
[2024-03-03] VITALS (9 sets, daily range): BP systolic 112–135; BP diastolic 60–80; PULSE 78–98; RESP 18; TEMP 97.6–98.5; O2SAT 98–99
[2024-03-03] MEDS: LEVOTHYROXINE SODIUM 125 MCG TABLET PO SCH (06:17)
[2024-03-03 07:03] LABS: BASOPHILS % (AUTO) 0.3 % (0.0-2.0); EOSINOPHILS % (AUTO) 0 % (1.0-6.0); HEMATOCRIT 37.7 % (36-46); HEMOGLOBIN 12.5 g/dL (12.0-16.0); LYMPHOCYTES # (AUTO) 1.8 K/uL (1.0-4.8); LYMPHOCYTES % (AUTO) 8.9 % (22.0-44.0); MEAN CORPUSCULAR HEMOGLOBIN 31.1 pg (26.0-34.0); MEAN CORPUSCULAR HGB CONC 33.1 G/dL (31.0-37.0); MEAN CORPUSCULAR VOLUME 94 fL (80-100); MONOCYTES # (AUTO) 0.3 K/uL (0.1-1.0); MONOCYTES % (AUTO) 1.5 % (2.0-9.0); PLATELET COUNT (AUTO) 283 K/uL (150-450); RED BLOOD CELL COUNT(AUTO) 4.01 MIL/uL (4.00-5.20); RED CELL DISTRIBUTION WIDTH 13.6 % (11.5-14.5); WHITE BLOOD COUNT (AUTO) 20.1 K/uL (4.5-11.0)
[2024-03-03 07:09] LABS: NEUTROPHILS % (AUTO) 89.3 % (40.0-70.0)
[2024-03-03 07:26] LABS: ANION GAP 15 mmol/L (8-16); CALCIUM, TOTAL 9.6 mg/dL (8.8-10.5); CARBON DIOXIDE 19 mmol/L (22-29); CHLORIDE 107 mmol/L (98-107); CREATININE 0.78 mg/dL (0.60-1.30); GLOMERULAR FILTR. RATE CALC > 60 mL/min (>60); GLUCOSE,RANDOM 147 mg/dL (70-110); POTASSIUM 4.1 mmol/L (3.5-5.1); SODIUM SERUM 141 mmol/L (136-145); UREA NITROGEN, BLOOD 15 mg/dL (7-18)
[2024-03-03] MEDS: PANTOPRAZOLE SODIUM 40 MG DR TABLET PO SCH (08:17)
[2024-03-03] MEDS ORDERED: FLUT1BLS9 IH (11:40)
[2024-03-03] MEDS: SODIUM CHLORIDE 0.9% 1,000 ML IV ONE (11:48)
[2024-03-03 15:28] LABS: APPEARANCE,URINE CLEAR (CLEAR); BILIRUBIN,URINE NEGATIVE (NEGATIVE); COLOR,URINE LIGHT YELLOW (YELLOW); GLUCOSE, URINE (UA) NEGATIVE (NEGATIVE); KETONES,URINE NEGATIVE (NEGATIVE); LEUKOCYTE ESTERASE ,URINE NEGATIVE (NEGATIVE); NITRATE,URINE NEGATIVE (NEGATIVE); OCCULT BLOOD,URINE TRACE (NEGATIVE); PH,URINE 5.5 (5.0-8.0); PROTEIN,URINE TRACE mg/dL (NEGATIVE); SPECIFIC GRAVITIY, URINE 1.027 (1.003-1.030); UROBILINOGEN,URINE <=1.0 mg/dL (<=1.0)
[2024-03-03 16:24] LABS: BACTERIA,URINE None Seen /HPF (None Seen); RBC,URINE None Seen /HPF (0-2); WBC,URINE None Seen /HPF (0-5)
[2024-03-04] MEDS: ONDANSETRON HCL 4 MG/2 ML VIAL IVP PRN (00:38)
[2024-03-04 01:06] VITALS: BP 118/75; PULSE 84; RESP 18; TEMP 97.4
[2024-03-04 05:00] VITALS: BP 119/73; PULSE 85; RESP 18; TEMP 97.9
[2024-03-04 07:00] VITALS: PULSE 101; PULSE 98; RESP 16; RESP 18; O2SAT 97; O2SAT 99
[2024-03-04 07:28] LABS: BASOPHILS % (AUTO) 0.1 % (0.0-2.0); EOSINOPHILS % (AUTO) 0 % (1.0-6.0); HEMATOCRIT 36.6 % (36-46); HEMOGLOBIN 12.1 g/dL (12.0-16.0); LYMPHOCYTES # (AUTO) 1.3 K/uL (1.0-4.8); LYMPHOCYTES % (AUTO) 6.5 % (22.0-44.0); MEAN CORPUSCULAR HEMOGLOBIN 31.3 pg (26.0-34.0); MEAN CORPUSCULAR VOLUME 95 fL (80-100); MONOCYTES # (AUTO) 0.4 K/uL (0.1-1.0); MONOCYTES % (AUTO) 2.3 % (2.0-9.0); NEUTROPHILS # (AUTO) 17.6 K/uL (1.8-7.7); PLATELET COUNT (AUTO) 279 K/uL (150-450); RED BLOOD CELL COUNT(AUTO) 3.87 MIL/uL (4.00-5.20); RED CELL DISTRIBUTION WIDTH 13.1 % (11.5-14.5); WHITE BLOOD COUNT (AUTO) 19.3 K/uL (4.5-11.0)
[2024-03-04 07:44] LABS: NEUTROPHILS % (AUTO) 91.1 % (40.0-70.0)
[2024-03-04 07:46] LABS: ANION GAP 11 mmol/L (8-16); CALCIUM, TOTAL 9.1 mg/dL (8.8-10.5); CARBON DIOXIDE 22 mmol/L (22-29); CHLORIDE 109 mmol/L (98-107); CREATININE 0.83 mg/dL (0.60-1.30); GLOMERULAR FILTR. RATE CALC > 60 mL/min (>60); GLUCOSE,RANDOM 145 mg/dL (70-110); POTASSIUM 4.2 mmol/L (3.5-5.1); SODIUM SERUM 142 mmol/L (136-145); UREA NITROGEN, BLOOD 18 mg/dL (7-18)
[2024-03-04 08:24] LABS: RBC MORPHOLOGY COMMENT NORMAL RBC MORPH
[2024-03-04] MEDS: LORazepam 1 MG TABLET PO PRN (14:12)
[2024-03-04] MEDS: DiphenhydrAMINE/ZINC ACET 30 GM CREAM TP PRN (14:22)
[2024-03-04 17:44] VITALS: BP 128/78; PULSE 70; RESP 18; TEMP 97.3
[2024-03-04 19:34] VITALS: BP 111/85; PULSE 69; RESP 18; TEMP 98.1
[2024-03-04] MEDS: HYDROCORTISONE 1% 30 GM CREAM TP PRN (21:47)
[2024-03-04 23:32] VITALS: BP 103/60; PULSE 64; RESP 18; TEMP 97.7
[2024-03-05 05:07] VITALS: BP 106/65; PULSE 74; RESP 18; TEMP 98.1
[2024-03-05 06:11] LABS: EOSINOPHILS % (AUTO) 0 % (1.0-6.0); HEMATOCRIT 36.9 % (36-46); HEMOGLOBIN 12.3 g/dL (12.0-16.0); LYMPHOCYTES # (AUTO) 1.3 K/uL (1.0-4.8); LYMPHOCYTES % (AUTO) 9.3 % (22.0-44.0); MEAN CORPUSCULAR HEMOGLOBIN 31.4 pg (26.0-34.0); MEAN CORPUSCULAR HGB CONC 33.3 G/dL (31.0-37.0); MEAN CORPUSCULAR VOLUME 94 fL (80-100); MONOCYTES # (AUTO) 0.6 K/uL (0.1-1.0); MONOCYTES % (AUTO) 4.3 % (2.0-9.0); NEUTROPHILS # (AUTO) 11.9 K/uL (1.8-7.7); PLATELET COUNT (AUTO) 275 K/uL (150-450); RED BLOOD CELL COUNT(AUTO) 3.91 MIL/uL (4.00-5.20); RED CELL DISTRIBUTION WIDTH 13.7 % (11.5-14.5); WHITE BLOOD COUNT (AUTO) 13.8 K/uL (4.5-11.0)
[2024-03-05 06:12] LABS: NEUTROPHILS % (AUTO) 86.4 % (40.0-70.0)
[2024-03-05 06:39] LABS: ANION GAP 7 mmol/L (8-16); CALCIUM, TOTAL 9.2 mg/dL (8.8-10.5); CARBON DIOXIDE 28 mmol/L (22-29); CHLORIDE 106 mmol/L (98-107); CREATININE 0.74 mg/dL (0.60-1.30); GLOMERULAR FILTR. RATE CALC > 60 mL/min (>60); GLUCOSE,RANDOM 120 mg/dL (70-110); POTASSIUM 4.1 mmol/L (3.5-5.1); SODIUM SERUM 141 mmol/L (136-145); UREA NITROGEN, BLOOD 22 mg/dL (7-18)
[2024-03-05 06:50] VITALS: PULSE 85; RESP 18; O2SAT 98
[2024-03-05 07:05] VITALS: PULSE 85; RESP 18; O2SAT 100
[2024-03-05 07:52] VITALS: BP 132/69; PULSE 72; RESP 18; TEMP 98.1
[2024-03-05 12:00] VITALS: BP 125/71; PULSE 69; RESP 18; TEMP 97.8
[2024-03-05] MEDS ORDERED: ALBU18HF12 IH (14:51)
[2024-03-05] MEDS ORDERED: PRED-729 PO (14:51)
[2024-03-05] MEDS ORDERED: PRED-549 PO (14:51)
[2024-03-05] MEDS ORDERED: PRED-554 PO (14:51)
[2024-03-05] MEDS ORDERED: ALBUTEROL SULFATE HFA 90 MCG/PUFF 8 GM INHALER IH PRN (15:15)
[2024-03-05 15:56] VITALS: PULSE 81; RESP 18; O2SAT 95
[2024-03-05] MEDS: IPRATROPIUM BROMIDE 0.5 MG/2.5 ML NEB SOLUTION NEB PRN (15:56)
[2024-03-05] MEDS: ALBUTEROL SULFATE 2.5 MG/0.5 ML NEB SOLUTION NEB PRN (15:57)
== END 2024-03-05 16:45 | disposition home or self-care (01) | DRG 871 ==
LOC: EMS 06:23 → EDH 15:19 → EDBEDREQTM 16:31 → EDBEDREQ 16:31 → 5S 16:36
PROVIDERS: ADMIT Internal Medicine; ATTEND Internal Medicine
DX: A41.9 Sepsis, unspecified organism (principal); J96.90 Respiratory failure, unspecified, unspecified whether with hypoxia or hypercapnia; J45.901 Unspecified asthma with (acute) exacerbation; E87.20 Acidosis, unspecified; E06.3 Autoimmune thyroiditis; Z20.822 Contact with and (suspected) exposure to COVID-19; F41.9 Anxiety disorder, unspecified; Z88.8 Allergy status to other drugs, medicaments and biological substances; Z91.040 Latex allergy status; Z91.013 Allergy to seafood; Z88.6 Allergy status to analgesic agent; Z90.711 Acquired absence of uterus with remaining cervical stump; Z90.49 Acquired absence of other specified parts of digestive tract; Z90.710 Acquired absence of both cervix and uterus; Z79.899 Other long term (current) drug therapy; Z88.5 Allergy status to narcotic agent; Z91.018 Allergy to other foods
CPT/HCPCS: 71045; 71250; 72192; 74150; 80048; 80053; 81001; 83605; 83880; 84484; 85025; 87040; 87804; 93005; 94640; 94645; 99285; J0456; J0696; J1644; J2405; J2919; J3535; J7030; Q9967; 36415-L1; 36415-TC; J7613

== ENCOUNTER 2024-04-25 11:09 | Emergency (ER) | payer OTHER, MEDICARE ==
[~2024-04-25] VITALS: Ht 154.9 cm; Wt 75.0 kg
[~2024-04-25 11:09] MED LIST changes: -FLUT1BLS18 IH; +FLUT1BLS9 IH; +PRED-549 PO; +PRED-729 PO
[2024-04-25 11:26] LABS: COVID AG,FIA SOURCE NASAL SWAB
[2024-04-25 11:53] LABS: RAPID GROUP A STREP NEGATIVE (NEGATIVE)
[2024-04-25 11:57] LABS: INFLUENZA TYPE A NEGATIVE FOR TYPE A (NEGATIVE); INFLUENZA TYPE B NEGATIVE FOR TYPE B (NEGATIVE)
[2024-04-25 12:01] LABS: SARS-COV2 (COVID) ANTIGEN,FIA Positive (Negative)
[2024-04-25 13:37] VITALS: BP 143/83; PULSE 111; RESP 14; TEMP 98.8
[2024-04-25] MEDS: ACETAMINOPHEN 500 MG TABLET PO ONE (14:13)
== END 2024-04-25 14:19 | disposition home or self-care (01) ==
LOC: EMS 11:09
DX: U07.1 COVID-19 (principal); F41.9 Anxiety disorder, unspecified; J45.909 Unspecified asthma, uncomplicated; E03.9 Hypothyroidism, unspecified; Z90.49 Acquired absence of other specified parts of digestive tract; Z90.710 Acquired absence of both cervix and uterus; Z98.890 Other specified postprocedural states; Z91.040 Latex allergy status; Z91.013 Allergy to seafood; Z88.6 Allergy status to analgesic agent; Z88.5 Allergy status to narcotic agent; Z91.018 Allergy to other foods
CPT/HCPCS: 87430; 87804; 99283

== ENCOUNTER 2024-12-16 08:50 | Emergency (ER) | payer OTHER, MEDICARE ==
[~2024-12-16] VITALS: Ht 149.9 cm; Wt 59.1 kg
[~2024-12-16 08:50] MED LIST changes: -CYCL-448 PO; -PRED-549 PO; -PRED-554 PO; -PRED-729 PO
[2024-12-16 08:52] VITALS: TEMP 98.7
[2024-12-16] MEDS: PredniSONE 20 MG TABLET PO ONE (09:08)
[2024-12-16] MEDS: ACETAMINOPHEN 500 MG TABLET PO ONE (09:08)
[2024-12-16 09:16] LABS: COVID AG,FIA SOURCE NASAL SWAB
[2024-12-16 09:17] LABS: BASOPHILS % (AUTO) 0.3 % (0.0-2.0); EOSINOPHILS % (AUTO) 1.7 % (1.0-6.0); HEMATOCRIT 40.3 % (36-46); HEMOGLOBIN 13.5 g/dL (12.0-16.0); LYMPHOCYTES # (AUTO) 1.6 K/uL (1.0-4.8); MEAN CORPUSCULAR HEMOGLOBIN 31.7 pg (26.0-34.0); MEAN CORPUSCULAR HGB CONC 33.5 G/dL (31.0-37.0); MEAN CORPUSCULAR VOLUME 95 fL (80-100); MONOCYTES # (AUTO) 0.7 K/uL (0.1-1.0); MONOCYTES % (AUTO) 4.7 % (2.0-9.0); NEUTROPHILS # (AUTO) 12.2 K/uL (1.8-7.7); NEUTROPHILS % (AUTO) 82.3 % (40.0-70.0); PLATELET COUNT (AUTO) 263 K/uL (150-450); RED BLOOD CELL COUNT(AUTO) 4.27 MIL/uL (4.00-5.20); RED CELL DISTRIBUTION WIDTH 13.4 % (11.5-14.5); WHITE BLOOD COUNT (AUTO) 14.9 K/uL (4.5-11.0)
[2024-12-16 09:21] VITALS: PULSE 100; RESP 18; O2SAT 95
[2024-12-16] MEDS: ALBUTEROL SULFATE 2.5 MG/0.5 ML 5 ML NEB SOLUTION NEB ONE (09:21)
[2024-12-16] MEDS: IPRATROPIUM BROMIDE 0.5 MG/2.5 ML NEB SOLUTION NEB ONE (09:21)
[2024-12-16 09:24] LABS: ANION GAP 12 mmol/L (8-16); CARBON DIOXIDE 24 mmol/L (22-29); CHLORIDE 107 mmol/L (98-107); CREATININE 0.66 mg/dL (0.60-1.30); GLOMERULAR FILTR. RATE CALC > 60 mL/min (>60); GLUCOSE,RANDOM 101 mg/dL (70-110); POTASSIUM 3.8 mmol/L (3.5-5.1); SODIUM SERUM 143 mmol/L (136-145); UREA NITROGEN, BLOOD 10 mg/dL (7-18)
[2024-12-16 09:34] LABS: LACTIC ACID 1.3 mmol/L (0.4-2.0)
[2024-12-16 09:50] LABS: INFLUENZA TYPE A NEGATIVE FOR TYPE A (NEGATIVE); INFLUENZA TYPE B NEGATIVE FOR TYPE B (NEGATIVE); SARS-COV2 (COVID) ANTIGEN,FIA Negative (Negative)
[2024-12-16 10:30] VITALS: PULSE 128; RESP 20; O2SAT 97
[2024-12-16 10:59] VITALS: BP 113/68; PULSE 125; RESP 20; O2SAT 95
[2024-12-16] MEDS ORDERED: ALBU18HF12 IH (11:24)
[2024-12-16] MEDS ORDERED: PRED-554 PO (11:24)
== END 2024-12-16 11:44 | disposition home or self-care (01) ==
LOC: EMS 08:52
DX: J40 Bronchitis, not specified as acute or chronic (principal); E03.9 Hypothyroidism, unspecified; F41.9 Anxiety disorder, unspecified; Z90.710 Acquired absence of both cervix and uterus; Z90.49 Acquired absence of other specified parts of digestive tract; Z88.6 Allergy status to analgesic agent; Z88.5 Allergy status to narcotic agent; Z79.51 Long term (current) use of inhaled steroids; Z91.018 Allergy to other foods; Z20.822 Contact with and (suspected) exposure to COVID-19
CPT/HCPCS: 99285; 71045; 87426; 80048; 83605; 85025; 87804; 36415; 94644; J7512

== ENCOUNTER 2025-01-25 21:12 | Emergency (ER) | payer OTHER, MEDICARE ==
[~2025-01-25] VITALS: Ht 149.9 cm; Wt 59.1 kg
[~2025-01-25 21:12] MED LIST changes: +PRED-554 PO
[2025-01-25 21:19] VITALS: TEMP 98.2
[2025-01-25] MEDS: ACETAMINOPHEN 325 MG TABLET PO ONE (22:30)
[2025-01-25] MEDS: methocarbamoL 500 MG TABLET PO ONE (22:30)
[2025-01-25] MEDS ORDERED: METH-812 PO (23:22)
[2025-01-26 00:02] VITALS: BP 133/77; PULSE 79; RESP 15; O2SAT 98
== END 2025-01-26 00:03 | disposition home or self-care (01) ==
LOC: EMS 21:12
DX: S40.011A Contusion of right shoulder, initial encounter (principal); J45.909 Unspecified asthma, uncomplicated; E03.9 Hypothyroidism, unspecified; Z88.5 Allergy status to narcotic agent; Z88.6 Allergy status to analgesic agent; Z91.040 Latex allergy status; Z91.018 Allergy to other foods; Z90.49 Acquired absence of other specified parts of digestive tract; Z90.710 Acquired absence of both cervix and uterus; W01.0XXA Fall on same level from slipping, tripping and stumbling without subsequent striking against object, initial encounter; Y93.01 Activity, walking, marching and hiking; Y92.89 Other specified places as the place of occurrence of the external cause; Y99.8 Other external cause status
CPT/HCPCS: 99284; 73030-TC; 73110-TC; Z7502; Z7610

== ENCOUNTER → 2025-03-24 | Outpatient (CLI) | payer OTHER, MEDICARE ==
[~2025-03-24] MED LIST changes: +METH-812 PO
== END | disposition home or self-care (01) ==
LOC: LABMN 12:19
PROVIDERS: ATTEND Family Medicine
DX: K90.0 Celiac disease (principal)
CPT/HCPCS: 83036